=== PATIENT | female | born 1995 | race Caucasian/White ===

== ENCOUNTER 2024-02-04 08:18 | Emergency (ER) | payer OTHER, BC, SELFPAY ==
[2024-02-04 08:21] VITALS: BP 154/79; PULSE 92; RESP 16; TEMP 36.9; O2SAT 96; BMI 21.8
--- NOTE | 2024-02-04 09:00 | ED.GENADULT ---
HPI - General Adult General Chief complaint: Laceration/Wound Stated complaint: may need stitches left hand Time Seen by Provider: 02/04/24 08:55 History of Present Illness HPI narrative: Pt was at work and sliced part of her Left thumb on a metal conveyor equipment. Lac is painful, 5/ 10 pain 28-year-old woman presenting to the emergency department following a laceration at work to her left thumb. This apparently occurred at work on conveyed or equipment. Has managed to wrap up and controlled bleeding. Painful but not complaining. Related Data Home Medications ?Medication ?Instructions ?Recorded ?Confirmed No Known Home Medications 02/04/24 02/04/24 Allergies Allergy/AdvReac Type Severity Reaction Status Date / Time No Known Drug Allergies Allergy Verified 02/04/24 08:27 Review of Systems Status of ROS: Reports: 6 or more systems reviewed and unremarkable except as noted in History and below Exam Narrative: Exam Narrative: NAD. Favoring her left hand as expected. Wound is somewhat diagonal but primarily along the radial side distal thumb. 2 cm. Bleeds easily when manipulated. Gaps. Full dermal. Has normal function of her thumb. Clean wound. No evidence of crush. Const: Vital Signs, click to edit/add: Vital Signs - 24 hr 02/04/24 08:21 Temperature 98.4 F Pulse Rate [Pulse Oximeter] 92 Respiratory Rate 16 Blood Pressure [Ri ght Upper Arm] 154/79 H Pulse Oximetry 96 Oxygen Delivery Me thod Room Air Documenting provider has reviewed patient's vital signs: yes Course Vital Signs Vital signs: Initial Vital Signs Temperature 98.4 F 02/04/24 08:21 Temperature Source Temporal Artery Scan 02/04/24 08:21 Pulse Rate 92 02/04/24 08:21 Respiratory Rate 16 02/04/24 08:21 Blood Pressure 154/79 H 02/04/24 08:21 Blood Pressure Mean 104 02/04/24 08:21 Blood Pressure Position Sitting 02/04/24 08:21 Pulse Oximetry 96 02/04/24 08:21 Oxygen Delivery Method Room Air 02/04/24 08:21 Vital Signs Temperature 98.4 F 02/04/24 08:21 Pulse Rate 92 02/04/24 08:21 Respiratory Rate 16 02/04/24 08:21 Blood Pressure 154/79 H 02/04/24 08:21 Pulse Oximetry 96 02/04/24 08:21 Oxygen Delivery Method Room Air 02/04/24 08:21 Temperature 98.4 F 02/04/24 08:21 Pulse Rate 92 02/04/24 08:21 Respiratory Rate 16 02/04/24 08:21 Blood Pressure 154/79 H 02/04/24 08:21 Pulse Oximetry 96 02/04/24 08:21 Oxygen Delivery Method Room Air 02/04/24 08:21 Medical Decision Making MDM Narrative Medical decision making narrative: This laceration would benefit from suturing. I returned to anesthetize with digital block of lidocaine. Excellent wound anesthesia achieved. Cleansed further with Hibiclens and water solution and Shur-Clens equivalent. Closed with interrupted sutures of 5 0 Ethilon. Excellent wound approximation achieved and bleeding controlled. Antibiotic ointment and Band-Aid applied. See patient discharge plan for further discussion Discharge Plan Discharge Clinical Impression: Laceration of thumb Additional Instructions: sutures out in 8 - 10 days. antibiotic ointment for 5 days and then to a dry dressing. ok to get wet but try not to soak while sutures are in. Ibuprofen, elevation for comfort. Watch for spreading redness after 2 days accompanied by heat, swelling, marked increase in pain, purulent drainage. Prescriptions: No Action No Known Home Medications [facility]: [facility] Inst[facility]
== END 2024-02-04 09:42 | disposition home or self-care (01) ==
LOC: ED 09:34
PROVIDERS: Emergency Provider Family Medicine
DX: S61.012A Laceration without foreign body of left thumb without damage to nail, initial encounter (principal); W26.9XXA Contact with unspecified sharp object(s), initial encounter
CPT/HCPCS: 12001; 99283; 99284